=== PATIENT | male | born 1975 | race Caucasian/White ===

== ENCOUNTER 2021-10-20 10:49 | Emergency (ER) | payer MEDICARE, SELFPAY ==
--- NOTE | ~2021-10-20 | XR_ITS ---
EXAMINATION: XR finger 5th LT min 2V DATE: 10/20/2021 11:15 INDICATION: Left hand fifth digit injury. TECHNIQUE: 4 views of left hand fifth digit were obtained. COMPARISON: None. FINDINGS: Bone alignment is normal. There is an old healed fracture deformity of tuft of fifth distal phalanx. No acute fracture. Joint spaces are normal. IMPRESSION: 1. No acute fracture. Reviewed, dictated and finalized at location A. LACTATION IMPRESSION: 1. No acute fracture.
[2021-10-20 10:58] VITALS: BP 129/84; PULSE 71; RESP 18; TEMP 36.6; O2SAT 99
[2021-10-20] MEDS: TETANUS,DIPHTHERIA,AC PERTUSSIS ADULT (0.5 ML) BOOSTRIX IM (12:39)
--- NOTE | 2021-10-20 12:40 | ED.WOUNDLAC ---
HPI - Wound/Laceration General Chief Complaint: Wound/Laceration Stated Complaint: finger injury Time Seen by Provider: 10/20/21 11:08 Source: patient Mode of arrival: ambulatory Limitations: no limitations History of Present Illness HPI narrative: This is a 45-year-old male that presents to the emergency department for left fifth finger laceration sustained just prior to arrival. Reports he got the finger caught in a wood splitter. Reports bleeding and pain to the area. He is not up-to-date on tetanus. Denies decreased range of motion or numbness. Related Data Allergies Allergy/AdvReac Type Severity Reaction Status Date / Time No Known Allergies Allergy Unverified 10/20/21 11:04 Review of Systems Review of Systems: CONSTITUTIONAL: Denies fever SKIN: Reports laceration MUSCULOSKELETAL: Reports joint pain, and myalgia. All systems reviewed & are unremarkable except as noted in HPI and below PMFSH Past Medical History Medical History (Updated 10/20/21 @ 12:44 by Ethel Baird PA-C) History of chronic back pain Family History Family History (System 07/12/19 @ 09:00 by Netta Mann) Grandparent Diabetes mellitus Social History Social History (System 07/12/19 @ 09:00 by Netta Mann) Smoking status: Light tobacco smoker Alcohol intake: never Exam Narrative: GENERAL: Well-appearing, well-nourished, and in no acute distress. HEAD: Normocephalic, atraumatic. EYES: EOMI. EXTREMITIES: Normal range of motion. Mild edema about the leftt fifth finger distal phalanx with 1 cm linear laceration and subcutaneous tissue to the palmar surface. Normal sensation SKIN: Warm, dry, no rash. NEURO: No focal deficits. Alert and oriented x3. PSYCH: Normal mood and affect Course Vital Signs Vital signs: Vital Signs Temperature 97.8 F 10/20/21 10:58 Pulse Rate 71 10/20/21 10:58 Respiratory Rate 18 10/20/21 10:58 Blood Pressure 129/84 10/20/21 10:58 Pulse Oximetry 99 10/20/21 10:58 Temperature 97.8 F 10/20/21 10:58 Pulse Rate 71 10/20/21 10:58 Respiratory Rate 18 10/20/21 10:58 Blood Pressure 129/84 10/20/21 10:58 Pulse Oximetry 99 10/20/21 10:58 MDM - Wound/Laceration MDM Narrative Medical decision making narrative: Patient presents to the emergency department for laceration to the left fifth finger sustained just prior to arrival. Laceration was irrigated and closed with sutures. Left third finger x-ray without acute osseous abnormalities. Patient was updated on tetanus. He was instructed on wound care. He is to follow-up with primary care doctor. He was given warnings to return to the ER Imaging Data Radiologist's impression: ITS Impressions Finger X-Ray 10/20/21 11:24 IMPRESSION: 1. No acute fracture. Critical Care Time Critical Care Time Critical Care Time: No Discharge Plan Discharge Clinical Impression: Laceration Patient Disposition: Home, Self-Care Condition: Stable Instructions: Antibiotic Form, Care For Your Stitches (ED), Laceration (ED) Additional Instructions: Return to the emergency department if you experience fever, redness or swelling of your wound, abnormal drainage from your wound, or any other symptoms that are concerning to you. Apply antibiotic ointment daily. Do not soak the wound. Clean with mild soap and water daily Follow-up with your primary care doctor for suture removal in 10-14 days. Prescriptions: New cephalexin 500 mg capsule 500 mg PO Q8H 5 Days Qty: 15 RF: 0 No Action gabapentin 100 mg capsule 100 mg PO Q3-4H Qty: 450 RF: 3 Follow-up/Referrals: Anthony Houston MD [Physician] - 2 Weeks UNKNOWN,DOCTOR [Primary Care Provider] -
== END 2021-10-20 12:52 | disposition home or self-care (01) ==
PROVIDERS: Emergency Provider Emergency Medicine
DX: S61.217A Laceration without foreign body of left little finger without damage to nail, initial encounter (principal); Z23 Encounter for immunization; F17.200 Nicotine dependence, unspecified, uncomplicated; W31.89XA Contact with other specified machinery, initial encounter
CPT/HCPCS: 12001; 73140; 90471; 90715; 99283

== ENCOUNTER 2024-05-11 11:33 | Emergency (ER) | payer MEDICARE, SELFPAY ==
--- NOTE | ~2024-05-11 | XR_ITS ---
EXAMINATION: [id number]_CR DATE: 05/11/2024 12:55 INDICATION: Left rib pain TECHNIQUE: A frontal inspiratory view of the chest and 3 views of the left ribs were obtained. COMPARISON: None FINDINGS: No rib fractures identified. No focal airspace opacities, pulmonary edema, pleural effusion or pneumo thorax. Heart size is normal accounting for AP technique. Mild thoracolumbar dextrocurvature. Partial ly visualized bilateral vertical ash and pedicle screw fixation for posterior lumbosacral spinal fusi on. IMPRESSION: 1. No rib fracture or acute cardiopulmonary disease. Reviewed, dictated and finalized at location A.
--- NOTE | 2024-05-11 11:36 | ED.CHESTPAIN ---
HPI - Chest Pain General Chief Complaint: Chest Pain Stated Complaint: rib pain left side Time Seen by Provider: 05/11/24 11:36 Source: patient Mode of arrival: ambulatory Limitations: no limitations History of Present Illness HPI narrative: Delvis is a 48-year-old male patient presenting to the clinic today with complaints of left lateral rib pain x1 week. He reports that he injured his ribs while he was at work 1 week ago and developed rib pain 2 days afterwards. He went to an urgent car and they told him the X-ray would cost $169 so he chose not to get an x-ray at that time. 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 Pain is worse with coughing and taking deep breaths. Patient is a smoker. Related Data Allergies Allergy/AdvReac Type Severity Reaction Status Date / Time No Known Allergies Allergy Unverified 05/11/24 11:33 Review of Systems Review of Systems: Pertinent positives per HPI. Patient denies any fever, chills, rash, headache, visual changes, dizziness, runny nose, sore throat, shortness of breath, chest pain, palpitations, nausea, vomiting, diarrhea, constipation, abdominal pain, or any urinary issues. [facility] Past Medical History Medical History History of chronic back pain Family History Family History Grandparent Diabetes mellitus Social History Social History Smoking status: Light tobacco smoker Alcohol intake: never Comments At the time of my signature, I reviewed and agree with the nursing past medical, surgical, social, and family history. There is no relevant family history pertinent to the patient complaint. Exam Narrative: General: Well-developed, well nourished, in no apparent distress Head: Normocephalic, atraumatic. Cardio: Regular rate and rhythm, s1 and s2 normal, no murmur appreciated. Chest wall: Tenderness to palpation over the left lateral ribs just below the axilla and to the posterior ribs, no rash or bruising. Resp: Clear to auscultation bilaterally, no rhonchi, rales, wheezing or rubs. Extremities: No deformity, no edema, no cyanosis, capillary refill less than 2 seconds, peripheral pulses palpable and strong. Integumentary: [place], warm, and dry, intact without lesion, no rashes. Course Course Emergency Course: Portions of this record may have been created with voice recognition software. Level of Care: [facility] Visit Vital Signs Vital signs: Vital Signs Pulse Oximetry 100 05/11/24 11:40 Oxygen Delivery Room Air 05/11/24 11:40 Temperature 36.9 C 05/11/24 11:44 Pulse Rate 107 H 05/11/24 11:44 Respiratory Rate 16 05/11/24 11:44 Blood Pressure 143/95 H 05/11/24 11:44 Pulse Oximetry 100 05/11/24 11:44 Oxygen Delivery Room Air 05/11/24 11:44 Vital signs reviewed MDM - Chest Pain MDM Narrative Medical decision making narrative: At the time of visit patient is resting comfortably on the exam table. Patient appears to be nontoxic. Diagnostics: Chest x-ray with unilateral ribs was ordered and was negative for any sign of fracture or malalignment of the left ribs or any acute cardiopulmonary process Plan: Unfortunately are x-ray experimental technician broke the x-ray machine and we are unable to do x-rays at this time. Report was called to Kary at [facility] and report was given for continuity care. Patient agrees to transfer to try location to get x-ray completed and be discharge from that location. X-ray was completed was negative. I suspect patient has chest wall pain. Discharge instructions given Differential Diagnosis Differential diagnosis: Likely fracture of rib, pneumothorax, atypical chest pain, costochondritis and chest pain Imaging Data Radiologist's impression: ITS Impressions
[2024-05-11 11:40] VITALS: O2SAT 100
[2024-05-11 11:44] VITALS: BP 143/95; PULSE 107; RESP 16; TEMP 36.9; O2SAT 100
== END 2024-05-11 13:08 | disposition home or self-care (01) ==
PROVIDERS: Emergency Provider Nurse Practitioner Family
DX: R07.89 Other chest pain (principal); F17.200 Nicotine dependence, unspecified, uncomplicated
CPT/HCPCS: 71101; 99213; G0463

== ENCOUNTER 2024-05-14 13:58 | Emergency (ER) | payer MEDICARE, SELFPAY ==
--- NOTE | ~2024-05-14 | XR_ITS ---
EXAMINATION: XR finger 2nd RT min 2V DATE: 05/14/2024 14:20 INDICATION: Right hand second digit puncture wound. TECHNIQUE: 4 views of right hand second digit were obtained. COMPARISON: None. FINDINGS: Alignment is normal. No fracture. 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 There is soft tissue gas in the second digit. IMPRESSION: 1. Soft tissue gas in the right hand second digit. No radiopaque foreign body. Reviewed, dictated and finalized at location A.
--- NOTE | 2024-05-14 13:59 | ED.UPPEXIN ---
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 Denies decreased range of motion or numbness. GENERAL: Well-appearing, well-nourished, and in no acute distress. HEAD: Normocephalic, atraumatic. CHEST: Clear to auscultation. ?No respiratory distress. HEART: Regular rate and rhythm.? NEURO: ?Alert and oriented x3. Patient screened in triage and initial orders placed.? ?Additional care and disposition to be based upon?diagnostic testing and treatment. <Ethel Baird PA-C - Last Filed: 05/14/24 18:04> History of Present Illness HPI narrative: PHYSICIAN ANESTHESIOLOGIST went into assess pt and he had left the facility. <Alicja Calderon APRN - Last Filed: 05/14/24 18:15> Related Data Allergies/Adverse Reactions: Allergies Allergy/AdvReac Type Severity Reaction Status Date / Time No Known Allergies Allergy Unverified 05/14/24 16:09 <Ethel Baird PA-C - Last Filed: 05/14/24 18:04> PMFSH Past Medical History Medical History: Medical History History of chronic back pain <MURRAY Parekh Last Filed: 05/14/24 18:04> Family History Family History: Family History Grandparent Diabetes mellitus <MURRAY Parekh Last Filed: 05/14/24 18:04> Social History Social History: Social History Smoking status: Light tobacco smoker Alcohol intake: never <Ethel Baidr PA-C - Last Filed: 05/14/24 18:04> Course Vital Signs Vital signs: Vital Signs Temperature 36.2 C L 05/14/24 14:29 Pulse Rate 74 05/14/24 14:29 Respiratory Rate 18 05/14/24 14:29 Blood Pressure 136/89 05/14/24 14:29 Temperature 36.2 C L 05/14/24 14:29 Pulse Rate 74 05/14/24 14:29 Respiratory Rate 18 05/14/24 14:29 Blood Pressure 136/89 05/14/24 14:29 <Etehl Baird PA-C - Last Filed: 05/14/24 18:04> Vital Signs Temperature 36.2 C L 05/14/24 14:29 Pulse Rate 74 05/14/24 14:29 Respiratory Rate 18 05/14/24 14:29 Blood Pressure 136/89 05/14/24 14:29 Temperature 36.2 C L 05/14/24 14:29 Pulse Rate 74 05/14/24 14:29 Respiratory Rate 18 05/14/24 14:29 Blood Pressure 136/89 05/14/24 14:29 <Alicja Calderon, CODY - Last Filed: 05/14/24 18:15> MDM - Extremity Injury (Upper) MDM Narrative Medical decision making narrative: Patient left after medical screening exam and initial workup and before definitive evaluation or management <Ethel Baird PA-C - Last Filed: 05/14/24 18:04> Patient left after medical screening exam and initial workup and before definitive evaluation or management. <Alicja Calderon APRN - Last Filed: 05/14/24 18:15> Imaging Data Radiologist's impression: ITS Impressions Finger X-Ray 05/14/24 14:24 IMPRESSION: 1. Soft tissue gas in the right hand second digit. No radiopaque foreign body. <Ethel Baird PA-C - Last Filed: 05/14/24 18:04> Discharge Plan Discharge Clinical Impression: Injury of finger of right hand Qualifiers: Encounter type: initial encounter Qualified Code(s): S69.91XA - Unspecified injury of right wrist, hand and finger(s), initial encounter <Ethel Baird PA-C - Last Filed: 05/14/24 18:04> Patient Disposition: Elopement After Seen by Prov <Ethel Baird PA-C - Last Filed: 05/14/24 18:04> Condition: Guarded Prognosis
[2024-05-14 14:29] VITALS: BP 136/89; PULSE 74; RESP 18; TEMP 36.2
--- NOTE | 2024-05-14 17:21 | PC.NURSE ---
Pt left ER after the x-ray and before seen the EDP and before getting the results of the x-ray.
--- NOTE | 2024-05-14 17:26 | PC.NURSE ---
Attempted to call the pt, no answer voice mail left.
== END 2024-05-14 18:25 | disposition left against medical advice (07) ==
LOC: ANHED 18:08
PROVIDERS: Emergency Provider Registered Nurse
DX: S69.91XA Unspecified injury of right wrist, hand and finger(s), initial encounter (principal); X58.XXXA Exposure to other specified factors, initial encounter
CPT/HCPCS: 73140; 99283

== ENCOUNTER 2024-06-23 08:32 | Emergency (ER) | payer MEDICARE, SELFPAY ==
[2024-06-23 08:45] VITALS: BP 154/100; PULSE 105; RESP 16; TEMP 36.3; O2SAT 97
--- NOTE | 2024-06-23 08:49 | ED.SKABFB ---
HPI - Skin/Abscess/Foreign Bdy General Chief complaint: Skin/Abscess/Foreign Body Stated complaint: left index finger painful Time Seen by Provider: 06/23/24 08:49 Source: patient Mode of arrival: ambulatory Limitations: no limitations History of Present Illness HPI narrative: 48 yo M presents with infection to left index finger for 3 days. Pt's hands are very dirty. 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 Is currently building a barn and thought he had splinter to L index finger. thought he got all the wood out. States at some point also got stucco in the finger. afebrile. Pain worse with movement. has been cleaning at home and taking ibuprofen. All systems reviewed and negative except as noted above. Related Data Allergies Allergy/AdvReac Type Severity Reaction Status Date / Time No Known Allergies Allergy Verified 06/23/24 08:53 Review of Systems Review of Systems: CONSTITUTIONAL: Denies fever, chills, or sweats. EYES: Denies visual changes, redness, or discharge. ENT: Denies rhinorrhea, congestion, sore throat, or otalgia. CARDIOVASCULAR: Denies chest pain, palpitations, or edema. RESPIRATORY: Denies cough or dyspnea. GASTROINTESTINAL: Denies abdominal pain, nausea, vomiting, or diarrhea. GENITOURINARY: Denies dysuria or hematuria. SKIN: Denies rash or itching. Reports redness, swelling, pain to left index finger. MUSCULOSKELETAL: Denies back pain, joint pain, or myalgia. NEUROLOGIC: Denies headache, numbness, or weakness. PSYCHIATRIC: Denies anxiety or depression. All other systems reviewed are negative, except as documented in HPI. PMFSH Past Medical History Medical History History of chronic back pain Family History Family History Grandparent Diabetes mellitus Social History Social History Smoking status: Light tobacco smoker Alcohol intake: never Comments At time of signature, agree with nursing past medical, surgical, social and family history. There is no relevant family history pertinent to the presenting complaint. Exam Narrative: GENERAL: This is a well-nourished, well-developed patient, in no apparent distress. HEAD: normocephalic, atraumatic. EYES: PERRL. Sclera clear/white. Vision is grossly intact. EARS: External ears normal NOSE: External nose normal NECK: Neck supple, non-tender without lymphadenopathy, masses or thyromegaly. CARDIOVASCULAR: Regular rate and rhythm without murmurs, gallops, or rubs. RESPIRATORY: Clear to auscultation. Breath sounds equal bilaterally. No wheezes, rales, or rhonchi. SKIN: warm, Dry, intact with no suspicious lesions or rash, good texture and turgor. NEURO: awake, alert, and oriented to person, place and time. There were no obvious focal neurologic abnormalities. EXTREMITIES: erythema, swelling, tenderness to L index finger. fluctuance palmar aspect, middle phalanx Course Course Level of Care: Express Care Visit Vital Signs Vital signs: Vital Signs Temperature 36.3 C L 06/23/24 08:45 Pulse Rate 105 H 06/23/24 08:45 Respiratory Rate 16 06/23/24 08:45 Blood Pressure 154/100 H 06/23/24 08:45 Pulse Oximetry 97 06/23/24 08:45 Oxygen Delivery Room Air 06/23/24 08:45 Temperature 36.3 C L 06/23/24 08:45 Pulse Rate 105 H 06/23/24 08:45 Respiratory Rate 16 06/23/24 08:45 Blood Pressure 154/100 H 06/23/24 08:45 Pulse Oximetry 97 06/23/24 08:45 Oxygen Delivery Room Air 06/23/24 08:45 Procedures Abscess I/D hand: Date of Incision: 06/23/24 Time of Incision: 09:15 Side (if applicable): left Local Anesthetic: lidocaine 1% Amount of anesthesia used (mL): 2 Technique: incised with #11 blade Irrigation: Yes Packing used?: none I&D Results: Pus Complic
== END 2024-06-23 09:19 | disposition home or self-care (01) ==
PROVIDERS: Emergency Provider Nurse Practitioner Family
DX: L02.512 Cutaneous abscess of left hand (principal); B95.4 Other streptococcus as the cause of diseases classified elsewhere; F17.200 Nicotine dependence, unspecified, uncomplicated
CPT/HCPCS: 26010; 87070; 87205; 99213; G0463; J2003

== ENCOUNTER 2024-07-14 17:35 | Emergency (ER) | payer MEDICARE, SELFPAY ==
[2024-07-14] VITALS (10 sets, daily range): BP systolic 128–153; BP diastolic 86–98; PULSE 72–88; RESP 14–23; TEMP 36.5; O2SAT 97–100
--- NOTE | ~2024-07-14 | XR_ITS ---
EXAMINATION: XR ribs LT 2V Exam Date/Time: 07/14/2024 20:18 DIESEL POWER MECHANIC HISTORY: left rib pain Comparison: 07/14/2024 at 6:08 PM. RESULT: Lines, tubes, and devices: None. Lungs and pleura: Clear. Cardiothymic silhouette: Stable. Other: No acute osseous or upper abdominal finding. IMPRESSION: No acute cardiopulmonary process. No acute osseous finding in the left ribs Reviewed, dictated and finalized at location K. EL POWER MECHANIC
--- NOTE | ~2024-07-14 | XR_ITS ---
EXAMINATION: XR chest 2V Exam Date/Time: 07/14/2024 18:08 DIGITAL MARKETING ASSISTANT HISTORY: SOB Comparison: None. RESULT: Lines, tubes, and devices: None. Lungs and pleura: Linear left basilar scar/atelectasis, otherwise clear. Cardiomediastinal silhouette: Unremarkable. Other: No acute osseous or upper abdominal finding. IMPRESSION: No acute cardiopulmonary process. Reviewed, dictated and finalized at location K. TAL MARKETING ASSISTANT
--- NOTE | 2024-07-14 17:47 | ECG_ITS ---
Test Date: 2024-07-14 17:52:43 Measurements Intervals [place] Rate: 67 P: 34 CO: 136 QRS: 60 QRSD: 90 T: 56 QT: 386 QTc: 410 Interpretive Statements SINUS RHYTHM BASELINE ARTIFACT- I, II, AVR NORMAL ECG No previous ECG available for comparison Electronically Signed On 07-14-2024 18:03:08 TANK CAR MECHANIC by Jim Joseph D.O.
[2024-07-14 18:17] LABS: Basophils Percent Auto 0.4 % (0.2-1.2); Eosinophils Absolute Auto 0.2 K/mm3 (0-0.3); Eosinophils Percent Auto 2.2 % (0-4.4); Hematocrit 43.6 % (42.0-52.0); Hemoglobin 14.9 g/dL (14.0-18.0); Immature Granulocyte Absolute 0.02 K/mm3 (0.00-0.031); Immature Granulocyte Percent A 0.3 % (0-0.5); Lymphocytes Absolute Auto 1.75 K/mm3 (0.9-3.2); Lymphocytes Percent Auto 23.1 % (18.3-44.2); Mean Corpuscular HGB Conc 34.2 g/dl (32-36); Mean Corpuscular Hemoglobin 32.6 pg (26-34); Mean Corpuscular Volume 95.4 fl (80-100); Mean Platelet Volume 8.8 fl (7.4-10.4); Monocytes Absolute Auto 0.5 K/mm3 (0.1-0.6); Monocytes Percent Auto 6.2 % (2.6-8.5); Neutrophils Absolute Auto 5.2 K/mm3 (1.3-6.7); Neutrophils Percent Auto 67.8 % (45.5-73.1); Platelet Count Result 296 k/mm3 (150-375); Red Blood Count 4.57 M/mm3 (4.6-6.20); Red Cell Distribution Width 12.1 % (11.5-14.5); White Blood Count 7.6 K/mm3 (4.5-10.0)
--- NOTE | 2024-07-14 18:36 | ED.SOB ---
HPI - SOB/Dyspnea General Chief Complaint: Shortness of Breath/Dyspnea Stated Complaint: cough, SOB, L. chest pain Time Seen by Provider: 07/14/24 17:58 Source: patient Mode of arrival: ambulatory Limitations: no limitations History of Present Illness HPI Narrative: This is a 48 year old male that presents to the ER for pain in the left ribs. Reports cough, congestion, possible fevers. Reports he coughed and felt a pop and thought maybe he had broken a rib. Reports some shortness of breath. Related Data Allergies Allergy/AdvReac Type Severity Reaction Status Date / Time poison jet extract Allergy Swelling Verified 07/14/24 19:19 milk AdvReac Abdominal Verified 07/14/24 19:19 Pain Review of Systems Review of Systems: CONSTITUTIONAL: Reports subjective fever ENT: Reports rhinorrhea, congestion CARDIOVASCULAR: Reports chest/rib pain RESPIRATORY: Reports cough and dyspnea. All systems reviewed & are unremarkable except as noted in HPI and below PMFSH Past Medical History Medical History History of chronic back pain Family History Family History Grandparent Diabetes mellitus Social History Social History Smoking status: Light tobacco smoker Alcohol intake: never Exam Narrative: GENERAL: Well-appearing, well-nourished, and in no acute distress. HEAD: Normocephalic, atraumatic. EYES: EOMI. ENT: Nares clear, no rhinorrhea or epistaxis. Mucous membranes moist. Oropharynx without tonsillar hypertrophy exudate or other lesions. Bilateral TMs pearly mack non-bulging NECK: Supple. No adenopathy or masses. CHEST: No respiratory distress. Mild scattered wheezing, lung sounds coarse. No rales or rhonchi HEART: Regular rate and rhythm. No murmur heard. Normal peripheral pulses. EXTREMITIES: Normal range of motion. No edema. SKIN: Warm, dry, no rash. NEURO: No focal deficits. Alert and oriented x3. PSYCH: Normal mood and affect Course Course Emergency Course: patient updated on workup and agrees with plan of care Vital Signs Vital signs: Vital Signs Temperature 97.7 F 07/14/24 17:49 Pulse Rate 77 07/14/24 17:49 Respiratory Rate 17 07/14/24 17:49 Blood Pressure 153/90 H 07/14/24 17:49 Pulse Oximetry 100 07/14/24 17:49 Oxygen Delivery Room Air 07/14/24 17:49 Temperature 97.7 F 07/14/24 17:49 Pulse Rate 79 07/14/24 20:01 Respiratory Rate 17 07/14/24 20:01 Blood Pressure 148/95 H 07/14/24 20:01 Pulse Oximetry 98 07/14/24 20:01 Oxygen Delivery Room Air 07/14/24 17:54 MDM - SOB/Dyspnea MDM Narrative Medical decision making narrative: this is a 48-year-old male that presents to the emergency department for cold symptoms present over the last couple of days. Reporting left-sided rib pain. He is afebrile and nontoxic appearing. Vitals are stable. Oxygen saturation is normal on room air. Cbc without leukocytosis. Metabolic panel without concerning findings. D-dimer is not elevated. EKG without acute changes and baseline troponin is negative. Chest x-ray without acute cardiopulmonary abnormality. Patient updated on his workup and agrees with plan of care. Will be given prescription for albuterol inhaler and continued on oral steroid for acute bronchitis. He is to follow up with primary provider. He was given warnings to return to the ER Differential Diagnosis Differential diagnosis: Likely acute exacerbation of chronic obstructive airways disease, community acquired pneumonia, pulmonary embolism and other ( rib fracture) Lab Data Attestation: I reviewed the patient's lab results. 07/14/24 18:05 07/14/24 18:05 Labs: Lab Results 07/14/24 07/14/24 07/14/24 Range/Units 18:04 18:05 18:49 WBC 7.6 (4.5-10.0) K/mm3 RBC 4.57 L (4.6-6.20) M/mm3 Hgb 14.9 (14.0-18.0) g/dL Hct 43.6 (42.0-52.0) % MCV 95.4 (80-100) fl MCH 32.6 (26-34) pg MCHC 34.2 (32-36) g/dl RDW 12.1 (11.5-14.5) % Plt Count 296 (150-375) k/mm3 MPV 8.8 (7.4-10.4) fl Immature Gran % (Auto) 0.3 (0-0.5) % Neut % (Auto) 67.8 (45.5-73.1) % Lymph % (Auto) 23.1 (18.3-44.2) % [place] % (Auto) 6.2 (2.6-8.5) % Eos % (Auto) 2.2 (0-4.4) % Baso % (Auto) 0.4 (0.2-1.2) % Lymph # (Auto) 1.75 (0.9-3.2) K/mm3 [place] # (Auto) 0.5 (0.1-0.6) K/mm3 Eos # (Auto) 0.2 (0-0.3) K/mm3 Baso # (Auto) 0.0 (0.0-0.1) K/mm3 Abs Immat Gran (auto) 0.02 (0.00-0.031) K/mm3 Absolute Neuts (auto) 5.2 (1.3-6.7) K/mm3 Absolute Nucleated RBC 0.000 (0.0-0.012) K/mm3 Nucleated RBC % 0.0 (0.0-0.2) % D-Dimer < 0.27 (<0.48) ug/mL Sodium 140 (137-145) mmol/L Potassium 4.9 (3.4-5.0) mmol/L Chloride 107 (98-107) mmol/L Carbon Dioxide 27 (22-30) mmol/L Anion Gap 6 (4-12) mmol/L BUN 24 H (9-20) mg/dL Creatinine 1.10 (0.7-1.3) mg/dL Estim Creat Clear Calc 77 ml/min Estimated GFR > 60 (59 - ) Glucose 134 H (65-110) mg/dL Calcium 9.7 (8.4-10.2) mg/dL Total Bilirubin 0.4 (0.2-1.3) mg/dL AST 32 (17-59) U/L ALT 35 (6-50) U/L Alkaline Phosphatase 62 (38-126) U/L Troponin I < 0.012 (0.000-0.034) ng/mL Total Protein 7.0 (6.3-8.2) g/dL Albumin 4.2 (3.5-5.1) g/dL Influenza A (RT-PCR) Negative (Negative) Influenza B (RT-PCR) Negative (Negative) RSV (RT-PCR) Negative (Negative) SARS-CoV-2 RNA (RT-PCR) Negative (Negative) Imaging Data Radiologist's impression: ITS Impressions Chest X-Ray 07/14/24 18:19 IMPRESSION: No acute cardiopulmonary process. Ribs X-Ray 07/14/24 20:24 IMPRESSION: No acute cardiopulmonary process. No acute osseous finding in the left ribs ECG Data EKG #1: ECG completion date: 07/14/24 EKG Interpretation: normal rate, sinus rhythm, no ST changes and normal QT Critical Care Time Critical Care Time Critical Care Time: No Discharge Plan Discharge Clinical Impression: Acute bronchitis Qualifiers: Bronchitis organism: unspecified organism Qualified Code(s): J20.9 - Acute bronchitis, unspecified Patient Disposition: Home, Self-Care Condition: Stable Instructions: Acute Bronchitis (ED) Additional Instructions: Return to the emergency department for worsening symptoms, or any other concerns Remain well-hydrated, get plenty of rest. Take Tylenol or Motrin [id number] for pain as needed. Flonase for nasal congestion. Zyrtec for runny nose. Lozenges or Chloraseptic spray for sore throat. albuterol 2 puffs every 4-6 hours as needed for shortness of breath or wheezing. Continue steroid daily Follow up with primary care doctor Prescriptions: New prednisone 20 mg tablet 40 mg PO DAILY 4 Days Qty: 8 0RF albuterol sulfate 90 mcg/actuation HFA aerosol inhaler 2 puff inhalation QID PRN (Reason: shortness of breath or wheezing) Qty: 8.5 0RF No Action clindamycin HCl 300 mg capsule 300 mg PO QID 10 Days Qty: 40 0RF ibuprofen 600 mg tablet 600 mg PO Q6H PRN (Reason: pain) Qty: 30 0RF Follow-up/Referrals: PHYSICIAN,FORCE ADJUSTMENT SUPERVISOR [Primary Care Provider] - Sorin Mcdowell MD [Physician] -
[2024-07-14 19:08] LABS: Alanine Aminotransferase 35 U/L (6-50); Albumin Level 4.2 g/dL (3.5-5.1); Alkaline Phosphatase 62 U/L (38-126); Anion Gap 6 mmol/L (4-12); Aspartate Amino Transferase 32 U/L (17-59); Bilirubin,Total 0.4 mg/dL (0.2-1.3); Blood Urea Nitrogen 24 mg/dL (9-20); Calcium 9.7 mg/dL (8.4-10.2); Carbon Dioxide 27 mmol/L (22-30); Chloride 107 mmol/L (98-107); Estimated CRCL calculation 77 ml/min; Estimated Glomerular Filt Rate > 60; Glucose 134 mg/dL (65-110); Potassium 4.9 mmol/L (3.4-5.0); Sodium 140 mmol/L (137-145)
[2024-07-14 19:13] LABS: D Dimer < 0.27 ug/mL (<0.48)
[2024-07-14] MEDS: ACETAMINOPHEN 500 MG TABLET 1000 MG PO (19:20)
[2024-07-14] MEDS: predniSONE 20 MG TABLET 40 MG PO (19:21)
[2024-07-14 19:24] LABS: Troponin I < 0.012 ng/mL (0.000-0.034)
[2024-07-14] MEDS: IPRATROPIUM 0.5 MG/ALBUTEROL SULFATE 2.5 MG AMPUL.NEB 3 ML INHALATION (19:43)
[2024-07-14 21:14] LABS: Influenza A QL RT-PCR Negative (Negative); Influenza B QL RT-PCR Negative (Negative); RSV RNA, RT-PCR Negative (Negative); SARS-CoV-2 RNA PCR Negative (Negative)
== END 2024-07-14 21:30 | disposition home or self-care (01) ==
PROVIDERS: Emergency Medicine; Emergency Provider Physician Assistant
DX: J20.9 Acute bronchitis, unspecified (principal); Z20.822 Contact with and (suspected) exposure to COVID-19
CPT/HCPCS: 36415; 71046; 71100; 80053; 84484; 85025; 85380; 87637; 93005; 94640; 99284; A9270; J7512

== ENCOUNTER → 2024-07-17 15:22 | Outpatient (CLI) | payer MEDICARE, SELFPAY ==
--- NOTE | ~2024-07-17 | XR_ITS ---
HISTORY: INDEX FINGER INFECTION COMPARISON: None TECHNIQUE: 3 views of the left hand were performed. FINDINGS: No acute fracture is identified. The joint spaces are preserved. The carpal arcs are intact. Mild radiocarpal joint space narrowing with sclerosis of the distal radius is present. Bone mineralization is unremarkable. No significant soft tissue swelling. No radiopaque foreign body is identified. IMPRESSION: No acute fracture or dislocation within the left hand, as detailed above. Reviewed, dictated and finalized at location A. TRICIAN
== END ==
PROVIDERS: PCP Emergency Medicine; Visit Provider Emergency Medicine
DX: L08.9 Local infection of the skin and subcutaneous tissue, unspecified (principal)
CPT/HCPCS: 73130

== ENCOUNTER → 2025-01-07 10:01 | Outpatient (CLI) | payer MEDICARE, SELFPAY ==
--- NOTE | ~2025-01-07 | XR_ITS ---
XR hand LT min 3V Ordering provider: Sorin Mcdowell MD History: . HAND PUNCTURE WOUND . Comparison: None. FINDINGS: BONES: Small bony fragment is seen near to the base of the distal phalanx of the left thumb which is most likely on avulsion fracture. JOINT SPACES: Well maintained. SOFT TISSUES: Unremarkable. IMPRESSION: Avulsion fracture at the base of the distal phalanx of the left thumb. Reviewed, dictated and finalized at location A.
== END ==
PROVIDERS: PCP Emergency Medicine; Visit Provider Emergency Medicine
DX: S62.522A Displaced fracture of distal phalanx of left thumb, initial encounter for closed fracture (principal); X58.XXXA Exposure to other specified factors, initial encounter
CPT/HCPCS: 73130

== ENCOUNTER 2025-04-03 08:09 | Emergency (ER) | payer MEDICARE, SELFPAY ==
--- NOTE | ~2025-04-03 | XR_ITS ---
XR hand LT min 3V 04/03/2025 08:27 INDICATION: Left hand pain PROCEDURE: 3 views left hand COMPARISON: 01/07/2025 FINDINGS: Fracture, dislocation or subluxation is not identified. The soft tissues appear within norm al limits. No foreign bodies are identified. IMPRESSION: 1: NO ACUTE BONE OR JOINT ABNORMALITY IDENTIFIED. Reviewed, dictated and finalized at location []
--- NOTE | 2025-04-03 08:15 | ED_ITS ---
HPI - General Adult General Chief complaint: Extremity Injury, Upper Stated complaint: left hand injury Source: patient Mode of arrival: ambulatory Limitations: no limitations History of Present Illness HPI narrative: Patient is a [id number] 49-year-old male presenting with complaint of left hand injury. Patient reports he struck his left hand on a metal bar when getting out a [id number] 2 days ago. He denies any paresthesias. He denies any previous fracture to the left hand. Treatments initiated prior to arrival include ibuprofen. Last tetanus vaccination received < 5 yrs ago. No additional complaints. Related Data Allergies Allergy/AdvReac Type Severity Reaction Status Date / Time poison jet extract Allergy Swelling Verified 04/03/25 08:31 milk AdvReac Abdominal Verified 04/03/25 08:31 Pain Review of Systems Review of Systems: CONSTITUTIONAL: Denies body aches, fever, chills, or sweats. EYES: Denies visual changes, redness, or discharge. ENT: Denies rhinorrhea, congestion, sore throat, or otalgia. CARDIOVASCULAR: Denies chest pain, palpitations, or edema. RESPIRATORY: Denies cough or dyspnea. GASTROINTESTINAL: Denies abdominal pain, nausea, vomiting, or diarrhea. GENITOURINARY: Denies dysuria or hematuria. SKIN: Denies rash, itching, or wounds. MUSCULOSKELETAL: Reports left hand pain NEUROLOGIC: Denies headache, numbness, tingling, or weakness. PSYCH: Denies depression or anxiety. [facility] Past Medical History Medical History History of chronic back pain Family History Family History Grandparent Diabetes mellitus Social History Social History Smoking status: Light tobacco smoker Alcohol intake: never Exam Narrative: GENERAL: Well-appearing, well-nourished, and in no acute distress. HEAD: Normocephalic, atraumatic. EYES: EOMI. No redness or drainage. Conjunctivae normal. ENT: Mucous membranes pink and moist. NECK: Normal AROM. Supple. CHEST: No respiratory distress. HEART: normal rate Normal peripheral pulses. MUSCULOSKELETAL: generalized edema to the L. hand, the L. 4th and 5th metacarpals and digits are TTP. There is mild erythema noted to the dorsal aspect of the L. hand over the 4th and 5th metacarpals. There are no open wounds. There is no lymphatic streaking. +FROM +DNVI to the LUE SKIN: There is a scab to the dorsal aspect of the L. hand at the level of the distal 2nd metacarpal. There is no drainage. Warm, dry, no rash. Capillary refill normal. Normal skin turgor. NEURO: No focal deficits. Alert and oriented x3. Gait steady. PSYCH: Normal affect. No signs of depression or anxiety. Course Course Level of Care: Express Care Visit Vital Signs Vital signs: Vital Signs Temperature 98.4 F 04/03/25 08:20 Pulse Rate 75 04/03/25 08:20 Respiratory Rate 16 04/03/25 08:20 Blood Pressure 132/90 04/03/25 08:20 Pulse Oximetry 97 04/03/25 08:20 Oxygen Delivery Room Air 04/03/25 08:20 Temperature 98.4 F 04/03/25 08:20 Pulse Rate 75 04/03/25 08:20 Respiratory Rate 16 04/03/25 08:20 Blood Pressure 132/90 04/03/25 08:20 Pulse Oximetry 97 04/03/25 08:20 Oxygen Delivery Room Air 04/03/25 08:20 Procedures Orthopedic Splinting/Casting Injury #1: Splinting/Casting Date: 04/03/25 Splinting/Casting Time: 08:42 Side: left Upper Extremity Injury Location: hand Upper Extremity Immobilizer: August wrap Splint: prefabricated Pre-Procedure Neuro Vascular Exam: normal Post-Procedure Neuro Vascular Exam: normal Medical Decision Making MDM Narrative Medical decision making narrative: No acute fracture/dislocation. Given presence of scab to the affected hand, Will cover with abx and close f/u with PCP. No evidence of septic joint. Vital Signs Vital Signs: Vital Signs Temperature 98.4 F 04/03/25 08:20 Pulse Rate 75 04/03/25 08:20 Respiratory Rate 16 04/03/25 08:20 Blood Pressure 132/90 04/03/25 08:20 Pulse Oximetry 97 04/03/25 08:20 Oxygen Delivery Room Air 04/03/25 08:20 Temperature 98.4 F 04/03/25 08:20 Pulse Rate 75 07/30/25 08:20 Respiratory Rate 16 04/03/25 08:20 Blood Pressure 132/90 04/03/25 08:20 Pulse Oximetry 97 04/03/25 08:20 Oxygen Delivery Room Air 04/03/25 08:20 Imaging Data Attestation: I personally reviewed and interpreted this imaging study as follows: My impression: soft tissue swelling without obvious acute fracture/dislocation Discharge Plan Discharge Clinical Impression: Hand pain, left, Elevated blood pressure reading in office without diagnosis of hypertension Contusion of hand, left Qualifiers: Encounter type: initial encounter Qualified Code(s): S60.222A - Contusion of left hand, initial encounter Patient Disposition: Home Condition: Stable Instructions: Antibiotic Form, Contusion in Adults (ED) Additional Instructions: Go straight to ER should your symptoms become worse or should any new symptoms develop Patient Language: Lithuanian Prescriptions: New cephalexin 500 mg capsule 500 mg PO QID Qty: 20 0RF ibuprofen 600 mg tablet 600 mg PO TID PRN (Reason: pain) Qty: 20 0RF Follow-up/Referrals: Sorin Mcdowell MD [Primary Care Provider] - 04/04/25 8:35 am Time of Disposition: 08:35
[2025-04-03 08:20] VITALS: BP 132/90; PULSE 75; RESP 16; TEMP 36.9; O2SAT 97
== END 2025-04-03 08:49 | disposition home or self-care (01) ==
PROVIDERS: Emergency Provider Registered Nurse; PCP Emergency Medicine
DX: R03.0 Elevated blood-pressure reading, without diagnosis of hypertension (principal); S60.222A Contusion of left hand, initial encounter; W22.8XXA Striking against or struck by other objects, initial encounter; F17.200 Nicotine dependence, unspecified, uncomplicated
CPT/HCPCS: 73130; 99213; G0463